=== PATIENT | female | born 1945 | race Caucasian/White ===

== ENCOUNTER → 2018-06-03 | Day surgery (SDC) | payer MEDICARE | LOC: MSO 06:57 | DX: R19.5 Other fecal abnormalities (principal); K57.30 Diverticulosis of large intestine without perforation or abscess without bleeding; I10 Essential (primary) hypertension; E11.9 Type 2 diabetes mellitus without complications; Z79.84 Long term (current) use of oral hypoglycemic drugs; Z79.899 Other long term (current) drug therapy; Z87.891 Personal history of nicotine dependence | CPT/HCPCS: 00812; J2704; J3010; J7030 ==

== ENCOUNTER → 2018-08-14 | Outpatient (CLI) | payer MEDICARE | LOC: MAMMO 11:30 | DX: Z12.31 Encounter for screening mammogram for malignant neoplasm of breast (principal) ==

== ENCOUNTER 2020-12-18 21:48 | Emergency (ER) | payer MEDICARE ==
[2020-12-18] MEDS ORDERED: ZOCOR20 M1 PO (21:54)
[2020-12-18] MEDS ORDERED: GLUCOPHAGE500 MG/TAB PO (21:54)
[2020-12-18] MEDS ORDERED: BYSTOLIC10 MG PO (21:54)
[2020-12-18] MEDS ORDERED: MICARDIS HCT 121 TA1 PO (21:55)
[2020-12-18 22:35] LABS: EOS # 0.5 (0.04-0.40); EOS % 5.7 % (1.0-5.0); HEMOGLOBIN 12.5 g/dL (12.5-16.0); LYMPH# 1.3 (1.50-4.00); MEAN CELL VOLUME 84 fl (78-100); MEAN CORPUSCULAR HEMOGLOBIN 26 pg (27-31); MEAN CORPUSCULAR HGB CONC 31 g/dL (33-37); NEU # 6.2 (1.40-6.50); PLATELET COUNT 250 K/mm3 (130-400); RED BLOOD COUNT 4.77 M/mm3 (4.10-5.30); RED CELL DISTRIBUTION WIDTH 14.6 % (11.5-14.5)
[2020-12-18 22:41] LABS: ALBUMIN 3.8 g/dL (3.4-4.8)
[2020-12-18 22:43] LABS: CALCIUM 9.3 mg/dL (8.3-10.5)
[2020-12-18 22:44] LABS: TOTAL PROTEIN 6.3 g/dL (6.2-8.1)
[2020-12-18 22:46] LABS: TOTAL BILIRUBIN 0.5 mg/dL (0.2-1.2)
[2020-12-19 00:09] VITALS: BP 146/95
[2020-12-19 06:05] LABS: URINE APPEARANCE CLEAR; URINE BILIRUBIN NEGATIVE (NEGATIVE); URINE BLOOD NEGATIVE (NEGATIVE); URINE COLOR STRAW; URINE GLUCOSE NEGATIVE (NEGATIVE); URINE KETONE NEGATIVE (NEGATIVE); URINE LEUKOCYTE ESTERASE NEGATIVE (NEGATIVE); URINE NITRATE NEGATIVE (NEGATIVE); URINE PROTEIN(semi-quant) NEGATIVE (NEGATIVE); URINE UROBILINOGEN NORMAL (NORMAL); URINE WBC 0-1 /hpf (0-3)
== END 2020-12-19 00:09 | disposition other institution (70) ==
LOC: ED 21:48
PROVIDERS: Family Medicine
DX: I11.0 Hypertensive heart disease with heart failure (principal); I50.9 Heart failure, unspecified; E11.9 Type 2 diabetes mellitus without complications; E78.5 Hyperlipidemia, unspecified; Z79.84 Long term (current) use of oral hypoglycemic drugs; Z79.899 Other long term (current) drug therapy
CPT/HCPCS: J1940

== ENCOUNTER 2020-12-19 00:09 | Inpatient (IN) | payer MEDICARE ==
[~2020-12-19 00:09] MED LIST: BYSTOLIC10 MG PO; GLUCOPHAGE500 MG/TAB PO; MICARDIS HCT 121 TA1 PO; ZOCOR20 M1 PO
[2020-12-19 02:17] VITALS: BP 146/84
[2020-12-19 06:14] VITALS: BP 120/70
[2020-12-19 09:05] LABS: POTASSIUM 3.8 mmol/L (3.5-5.1)
[2020-12-19 09:07] LABS: CALCIUM 9.5 mg/dL (8.3-10.5)
[2020-12-19 09:19] LABS: TROPONIN-I 0.03 ng/mL (<0.030)
[2020-12-19 09:41] VITALS: BP 124/83
[2020-12-19 14:13] VITALS: BP 114/67
[2020-12-19 16:22] VITALS: BP 137/76
[2020-12-19 22:32] VITALS: BP 155/92
[2020-12-20 02:01] VITALS: BP 127/64
[2020-12-20 05:44] VITALS: BP 139/97
[2020-12-20 09:33] VITALS: BP 109/74
[2020-12-20 13:58] LABS: EOS # 0.3 (0.04-0.40); EOS % 3.8 % (1.0-5.0); HEMATOCRIT 39.8 % (37.0-47.0); HEMOGLOBIN 12.5 g/dL (12.5-16.0); LYMPH# 1.3 (1.50-4.00); MEAN CELL VOLUME 83 fl (78-100); MEAN CORPUSCULAR HEMOGLOBIN 26 pg (27-31); MEAN CORPUSCULAR HGB CONC 31 g/dL (33-37); MEAN PLATELET VOLUME 9.7 fl (7.4-10.4); NEU # 5.5 (1.40-6.50); PLATELET COUNT 274 K/mm3 (130-400); RED BLOOD COUNT 4.78 M/mm3 (4.10-5.30); RED CELL DISTRIBUTION WIDTH 14.7 % (11.5-14.5); WHITE BLOOD COUNT 8.1 K/mm3 (4.8-10.8)
[2020-12-20 14:05] VITALS: BP 134/80
[2020-12-20 14:56] LABS: ALBUMIN 3.9 g/dL (3.4-4.8); POTASSIUM 4.2 mmol/L (3.5-5.1)
[2020-12-20 14:57] LABS: CALCIUM 8.8 mg/dL (8.3-10.5)
[2020-12-20 14:58] LABS: TOTAL PROTEIN 6.5 g/dL (6.2-8.1)
[2020-12-20 15:00] LABS: TOTAL BILIRUBIN 0.8 mg/dL (0.2-1.2)
[2020-12-20 15:36] LABS: TROPONIN-I 0.03 ng/mL (<0.030)
== END 2020-12-20 18:19 | disposition short-term general hospital (02) | DRG 292 ==
LOC: MED/SURG 00:09
PROVIDERS: Nurse Practitioner; ADMIT Family Medicine
DX: I11.0 Hypertensive heart disease with heart failure (principal); E87.1 Hypo-osmolality and hyponatremia; I50.9 Heart failure, unspecified; E11.9 Type 2 diabetes mellitus without complications; R09.02 Hypoxemia; Z20.822 Contact with and (suspected) exposure to COVID-19
CPT/HCPCS: J1650; J1940

== ENCOUNTER 2020-12-30 14:53 | Emergency (ER) | payer MEDICARE ==
[2020-12-30] MEDS ORDERED: FUROSEMIDE40 MG PO (15:20)
[2020-12-30] MEDS ORDERED: METOPROLOL SUCC50 M1 PO (15:20)
[2020-12-30] MEDS ORDERED: ALDACTONE 25MG25 MG PO (15:20)
[2020-12-30] MEDS ORDERED: ATORVASTATIN CA40 MG PO (15:20)
[2020-12-30] MEDS ORDERED: CLOPIDOGREL75 M2 PO (15:21)
[2020-12-30 15:43] LABS: BASO # 0.02 (0.02-0.10); EOS # 0.11 (0.04-0.40); EOS % 1.1 % (1.0-5.0); HEMOGLOBIN 12.5 g/dL (12.5-16.0); LYMPH# 0.85 (1.50-4.00); MEAN CELL VOLUME 79 fl (78-100); MEAN CORPUSCULAR HEMOGLOBIN 27 pg (27-31); MEAN CORPUSCULAR HGB CONC 35 g/dL (33-37); MEAN PLATELET VOLUME 11.2 fl (7.4-10.4); MONO # 0.99 (0.20-0.80); NEU # 8.44 (1.40-6.50); PLATELET COUNT 364 K/mm3 (130-400); RED BLOOD COUNT 4.57 M/mm3 (4.10-5.30); RED CELL DISTRIBUTION WIDTH 14.4 % (11.5-14.5); WHITE BLOOD COUNT 10.5 K/mm3 (4.8-10.8)
[2020-12-30 16:27] LABS: D-DIMER 0.64 mg/L FEU (0.15-0.50)
[2020-12-30 17:03] LABS: ALBUMIN 3.7 g/dL (3.4-4.8); POTASSIUM 4.8 mmol/L (3.5-5.1)
[2020-12-30 17:05] LABS: CALCIUM 9.3 mg/dL (8.3-10.5)
[2020-12-30 17:06] LABS: TOTAL PROTEIN 6.4 g/dL (6.2-8.1)
[2020-12-30 17:30] LABS: TROPONIN-I 4.34 ng/mL (<0.030)
[2020-12-30 19:01] VITALS: BP 121/75
[2020-12-30 20:02] LABS: D-DIMER 0.75 mg/L FEU (0.15-0.50)
[2020-12-30 20:28] LABS: URINE APPEARANCE HAZY; URINE COLOR YELLOW
[2020-12-30 20:29] LABS: URINE BILIRUBIN NEGATIVE (NEGATIVE); URINE BLOOD NEGATIVE (NEGATIVE); URINE GLUCOSE NEGATIVE (NEGATIVE); URINE KETONE 1+ (NEGATIVE); URINE LEUKOCYTE ESTERASE 1+ (NEGATIVE); URINE NITRATE NEGATIVE (NEGATIVE); URINE PROTEIN(semi-quant) TRACE mg/dL (NEGATIVE); URINE UROBILINOGEN NORMAL (NORMAL); URINE WBC 31-50 /hpf (0-3)
== END 2020-12-30 19:02 | disposition short-term general hospital (02) ==
LOC: ED 14:53
PROVIDERS: Internal Medicine; Nurse Practitioner
DX: I11.0 Hypertensive heart disease with heart failure (principal); I50.9 Heart failure, unspecified; I25.10 Atherosclerotic heart disease of native coronary artery without angina pectoris; E11.9 Type 2 diabetes mellitus without complications; Z95.9 Presence of cardiac and vascular implant and graft, unspecified; Z87.891 Personal history of nicotine dependence; Z79.899 Other long term (current) drug therapy; Z79.02 Long term (current) use of antithrombotics/antiplatelets
CPT/HCPCS: J1644; J1940

== ENCOUNTER 2021-05-07 18:06 | Emergency (ER) | payer MEDICARE ==
[~2021-05-07] VITALS: Ht 152.4 cm; Wt 101.9 kg
[~2021-05-07 18:06] MED LIST changes: +ALDACTONE 25MG25 MG PO; +ATORVASTATIN CA40 MG PO; +CLOPIDOGREL75 M2 PO; +FUROSEMIDE40 MG PO; +METOPROLOL SUCC50 M1 PO
[2021-05-07] MEDS ORDERED: DESYREL50 MG PO (19:12)
[2021-05-07] MEDS ORDERED: GLUCOPHAGE PO (19:13)
[2021-05-07] MEDS ORDERED: ENTRESTO 24 MG1 EACH PO (19:13)
[2021-05-07] MEDS ORDERED: K-TAB20 MEQ PO (19:14)
[2021-05-07] MEDS ORDERED: PACERONE200 MG PO (19:15)
[2021-05-07 20:28] LABS: BASO # 0.01 (0.02-0.10); HEMATOCRIT 34.6 % (37.0-47.0); HEMOGLOBIN 10.8 g/dL (12.5-16.0); MEAN CELL VOLUME 85 fl (78-100); MEAN CORPUSCULAR HEMOGLOBIN 27 pg (27-31); MEAN CORPUSCULAR HGB CONC 31 g/dL (33-37); MEAN PLATELET VOLUME 10.3 fl (7.4-10.4); MONO # 1.18 (0.20-0.80); NEU # 12.66 (1.40-6.50); PLATELET COUNT 239 K/mm3 (130-400); RED BLOOD COUNT 4.05 M/mm3 (4.10-5.30); RED CELL DISTRIBUTION WIDTH 18.5 % (11.5-14.5); WHITE BLOOD COUNT 14.5 K/mm3 (4.8-10.8)
[2021-05-07 20:34] LABS: POTASSIUM 4.4 mmol/L (3.5-5.1)
[2021-05-07 20:35] LABS: ALBUMIN 3.8 g/dL (3.4-4.8); CALCIUM 10.2 mg/dL (8.3-10.5)
[2021-05-07 20:37] LABS: TOTAL PROTEIN 7.2 g/dL (6.2-8.1)
[2021-05-07 20:38] LABS: TOTAL BILIRUBIN 1.5 mg/dL (0.2-1.2)
[2021-05-07 21:20] LABS: TROPONIN-I 0.04 ng/mL (<0.030)
[2021-05-07 21:55] LABS: URINE APPEARANCE CLEAR; URINE COLOR YELLOW
[2021-05-07 21:56] LABS: URINE BILIRUBIN NEGATIVE (NEGATIVE); URINE BLOOD NEGATIVE (NEGATIVE); URINE GLUCOSE NEGATIVE (NEGATIVE); URINE KETONE NEGATIVE (NEGATIVE); URINE LEUKOCYTE ESTERASE NEGATIVE (NEGATIVE); URINE MUCUS PRESENT (NOT PRESENT); URINE NITRATE NEGATIVE (NEGATIVE); URINE PROTEIN(semi-quant) TRACE mg/dL (NEGATIVE); URINE UROBILINOGEN NORMAL (NORMAL)
[2021-05-07 22:30] VITALS: BP 137/67
[2021-05-07] MEDS ORDERED: LASIX80 M1 PO (22:33)
[2021-05-07] MEDS ORDERED: ADULT LOW DOSE81 MG PO (22:36)
== END 2021-05-07 22:20 | disposition other institution (70) ==
LOC: ED 18:06
PROVIDERS: Family Medicine
DX: R22.41 Localized swelling, mass and lump, right lower limb (principal); E11.9 Type 2 diabetes mellitus without complications; I11.9 Hypertensive heart disease without heart failure; I50.9 Heart failure, unspecified; E87.1 Hypo-osmolality and hyponatremia; R60.0 Localized edema; Z20.822 Contact with and (suspected) exposure to COVID-19
CPT/HCPCS: J0696; J1940

== ENCOUNTER 2021-05-07 22:20 | Inpatient (IN) | payer MEDICARE ==
[~2021-05-07] VITALS: Ht 165.1 cm; Wt 95.5 kg
[~2021-05-07 22:20] MED LIST changes: +DESYREL50 MG PO; +ENTRESTO 24 MG1 EACH PO; +GLUCOPHAGE PO; +K-TAB20 MEQ PO; +PACERONE200 MG PO
--- NOTE | 2021-05-07 22:20 | NUR ---
Patient admitted from ER via wheel chair to room 204 and able to ambulate with CGA to recliner. Report received from Christine TAYLOR. Patient alert and oriented x 4. Has frequent non productive moist couph but denies shortness of breath at this time. "Just have a couph". [place]umhnip-wg-[id number] in room then left for the night. Patient oriented to call light and room. Snack of sandwich and sprite zero given. Takes HS med and tylenol for headache whole in applesauce. RLE area of redness and some small blisters seeping serous drainage/sock removed and RLL left open to air. BLE elevated and chris applied under legs.
[2021-05-07 22:30] VITALS: BP 137/67
[2021-05-07] MEDS ORDERED: LASIX80 M1 PO (22:33)
[2021-05-07] MEDS ORDERED: ADULT LOW DOSE81 MG PO (22:36)
--- NOTE | 2021-05-07 23:00 | NUR ---
Dr. Nava notified of yeasty red areas under panus and groin and nurse inquired about desenex powder. Areas cleansed with mild soap and water and patted dry-tender to touch.
--- NOTE | 2021-05-08 02:00 | NUR ---
Patient has been resting with eyes closed in recliner and BLE elevated.
--- NOTE | 2021-05-08 04:30 | NUR ---
Patient awakened for am vitals, weight, wraps to legs and henderson insertion all reviewed with patient. Patient states she slept well. Up to bathroom with walker and standby assist. Voids 500mls teo urine. Assisted with legs into bed. Has pitting edema 2-3+ up into thighs and abdomin. Area of blisters/reddened skin to right maxwell (11 cm by 11cm estimated) seeping serous drainage, cleansed with sterile water, patted dry, followed by stacked 4/4 guaze dressing, secured by kerlix. Same dressing to seeping small blister to left maxwell. BLL wrapped from foot to knee with ronel wrap.
--- NOTE | 2021-05-08 05:00 | NUR ---
Good javi-care provided and 16 macedonian henderson catheter inserted via sterile procedure with immediate return of clear yellow urine. Foot of bed elevated and BLE elevated on pillows. SCD's on.
[2021-05-08 05:49] VITALS: BP 110/65
--- NOTE | 2021-05-08 07:15 | NUR ---
Report received from Mary Hernandez RN. Paula Hernandez RN reported dressing change to right and left lower legs done by Mary Hernandez RN this morning before shift change. Dressings CDI, with SCD's on right and left lower legs.
--- NOTE | 2021-05-08 07:18 | NUR ---
Resting in bed, eyes closed.
[2021-05-08 09:06] LABS: POTASSIUM 3.9 mmol/L (3.5-5.1)
[2021-05-08 09:08] LABS: HEMATOCRIT 32.9 % (37.0-47.0); HEMOGLOBIN 10.1 g/dL (12.5-16.0); MEAN CELL VOLUME 86 fl (78-100); RED BLOOD COUNT 3.82 M/mm3 (4.10-5.30); WHITE BLOOD COUNT 10.5 K/mm3 (4.8-10.8)
[2021-05-08 09:09] LABS: MEAN CORPUSCULAR HEMOGLOBIN 26 pg (27-31); MEAN CORPUSCULAR HGB CONC 31 g/dL (33-37); MEAN PLATELET VOLUME 10.3 fl (7.4-10.4); PLATELET COUNT 222 K/mm3 (130-400)
[2021-05-08 09:10] LABS: LYMPH# 0.94 (1.50-4.00); MONO # 0.84 (0.20-0.80); NEU # 8.67 (1.40-6.50)
[2021-05-08 09:16] LABS: TROPONIN-I 0.04 ng/mL (<0.030)
[2021-05-08 10:00] VITALS: BP 117/63
--- NOTE | 2021-05-08 11:00 | NUR ---
Given incentive spirometer. Pt instructed on incentive spirometer, stated understanding. Used spirometer x 5, reach 500mls. Pt instructed nursing staff would be in Q hourly while she was awake to use spirometer. Pt stated understanding.
--- NOTE | 2021-05-08 11:31 | NUR ---
Dressing to right and left lower legs CDI. SCD's on lower legs.
--- NOTE | 2021-05-08 11:35 | NUR ---
Pt's personal laundry sent to house keeping. Accu-chek 168.
[2021-05-08 13:54] VITALS: BP 113/69
--- NOTE | 2021-05-08 14:22 | NUR ---
Pt received phone call from family member. Pt happy and laughing while talking. Continues to be on tele-monitor. Continues to become SOB with exersion.
--- NOTE | 2021-05-08 15:25 | NUR ---
Report given to Chelsey Carney RN
--- NOTE | 2021-05-08 17:13 | NUR ---
Dressing to bilateral lower legs ( 4 x 4 s with ronel wraps over top) remain d/I. Dr. Nava notifed. Pt henderson emptied 650 mls teo urine (total for this 12 hour shift) - noted to have stringy blood clot in henderson tubing. Pt has had about 720 mls oral intake this shift.
[2021-05-08 18:17] VITALS: BP 119/72
--- NOTE | 2021-05-08 19:00 | NUR ---
Report to SHAZIA Miranda.
--- NOTE | 2021-05-08 19:04 | NUR ---
Lungs with exp wheezes LLL and bilateral coarse crackles. Pt resp 24 and just sounds tight audibly. Dr. Nava aware of argueta sputum and wheezing. Albuterol treatment given and robitussin ac po given for continued cough. Pt states she has a headache and tylenol given per her request. SP02 98% on RA.
--- NOTE | 2021-05-08 19:20 | NUR ---
Lungs with exp wheezes throughout post nebulizer. Tele monitor continues RSR w/ 1 degree AV block with BBB rates 70's.
--- NOTE | 2021-05-08 20:00 | NUR ---
Report received from Tash TAYLOR. Patient up to BR with SBA and walker with [employer]. Passing gas but no BM. Coughing and SOB with exertion. Assisted to bed. Assessment completed. Lungs with exp wheezes all boyd and diminished in bases. Cough mainly dry at this time. Had nebulizer tx and cough med, Tylenol at shift change. H/A resolved. INT patent to R hand. Dressings to BLE CDI. Gaines patient to DD with dark teo urine in bag. SCD's applied.
--- NOTE | 2021-05-08 21:03 | NUR ---
Back up in recliner per requests. States sleeps in chair at home. Coughing and SOB with exertion. HS medications taken whole in applesauce at this time. Gaines cath emptied prior to PO lasix administered. 175 ML out since shift change. I.S. used and pulls 500 ML x10 cough present in between.
[2021-05-08 21:04] VITALS: BP 109/66
--- NOTE | 2021-05-09 00:58 | NUR ---
Awake, coughing, loose NPC. Robitussin and Tylenol taken at this time. No audible wheezing noted. Offered and refused neb tx.
--- NOTE | 2021-05-09 04:07 | NUR ---
Rang call light and asked to lay in bed. Daily wt obtained. Down 1.5 lbs from yesterday. Dressings on legs re-wrapped. Quarter sized yellow drainage to RLE and LLE 4x4 barely damp. Denies pain.
[2021-05-09 05:28] VITALS: BP 116/63
--- NOTE | 2021-05-09 07:08 | NUR ---
Report to Olivia Dasilva RN.
--- NOTE | 2021-05-09 07:12 | NUR ---
Report received from Ruth MCCRAY
[2021-05-09 07:44] LABS: POTASSIUM 4.1 mmol/L (3.5-5.1)
[2021-05-09 07:45] LABS: CALCIUM 9.5 mg/dL (8.3-10.5)
[2021-05-09 09:27] VITALS: BP 111/69
--- NOTE | 2021-05-09 13:00 | NUR ---
Report recieved by Amy Watters RN
[2021-05-09 13:26] VITALS: BP 121/52
[2021-05-09 17:04] VITALS: BP 120/67
--- NOTE | 2021-05-09 19:00 | NUR ---
Report received from Izzy TAYLOR.
--- NOTE | 2021-05-09 20:45 | NUR ---
HS meds along with rocephin reviewed and given. Sits up in recliner. Alert and oriented x 4. BLE with 1-2+ pitting edema. Has an occassional moist couph.
[2021-05-09 21:38] VITALS: BP 114/67
--- NOTE | 2021-05-09 22:30 | NUR ---
Requests tylenol to help her relax and given.
[2021-05-10 01:42] VITALS: BP 113/64
--- NOTE | 2021-05-10 02:48 | NUR ---
Patient sitting up in recliner working on puzzle book. Denies needs. States had some sleep.
--- NOTE | 2021-05-10 06:00 | NUR ---
Patient reports she did get some sleep tonight up in recliner.
[2021-05-10 06:24] VITALS: BP 132/74
--- NOTE | 2021-05-10 07:00 | NUR ---
REPORT RECEVIED FROM BRANDON WALLS. PT CURRENTLY UP IN CHAIR; OFFER NO NEEDS OR COMPLAINTS AT THIS TIME. CALL LIGHT WITHIN REACH, CHAIR ALARM ON.
[2021-05-10 10:00] VITALS: BP 110/67
--- NOTE | 2021-05-10 13:30 | NUR ---
BLE DRESSINGS CHANGED PER PROVIDER. PLAN TO DISCHARGE THIS EVENING. PATIENT VERBILIZED UNDERSTANDING. PATIENT RESTING IN BED WITH EYES OPEN, SCDS ON. PATIENT DENIES NEEDS OR COMPLAINTS AT THIS TIME. CALL LIGHT WITHIN REACH.
[2021-05-10] MEDS ORDERED: LOTRIMIN AF90 GM TP (14:15)
[2021-05-10 14:20] VITALS: BP 128/57
[2021-05-10] MEDS ORDERED: CEFDINIR300 MG PO (14:20)
[2021-05-10] MEDS ORDERED: RT ALBUTEROL CC18 GM IH (14:31)
[2021-05-10 17:19] VITALS: BP 116/69
--- NOTE | 2021-05-10 17:55 | NUR ---
PATIENT DISCHARGED HOME VIA WC IN CARE OF GRANDDAUGHTER. DISCHARGE INSTRUCTIONS REVIEWED, PATIENT VERBILIZED UNDERSTANDING. ALL PATIENT BELONGINGS SENT WITH PATIENT.
== END 2021-05-10 17:55 | disposition home or self-care (01) | DRG 292 ==
LOC: MED/SURG 22:20
PROVIDERS: ADMIT Family Medicine
DX: I11.0 Hypertensive heart disease with heart failure (principal); L03.115 Cellulitis of right lower limb; E87.1 Hypo-osmolality and hyponatremia; I50.810 Right heart failure, unspecified; I25.10 Atherosclerotic heart disease of native coronary artery without angina pectoris; B37.2 Candidiasis of skin and nail; R05 Cough; E11.9 Type 2 diabetes mellitus without complications; Z20.822 Contact with and (suspected) exposure to COVID-19; Z79.84 Long term (current) use of oral hypoglycemic drugs; Z79.82 Long term (current) use of aspirin; Z95.5 Presence of coronary angioplasty implant and graft; Z95.2 Presence of prosthetic heart valve
CPT/HCPCS: A4340; J0696; J1940

== ENCOUNTER → 2021-07-12 | Outpatient (CLI) | payer MEDICARE ==
[~2021-07-12] MED LIST changes: +ADULT LOW DOSE81 MG PO; +CEFDINIR300 MG PO; +LASIX80 M1 PO; +LOTRIMIN AF90 GM TP; +RT ALBUTEROL CC18 GM IH
[2021-07-12 14:26] LABS: POTASSIUM 3.9 mmol/L (3.5-5.1)
[2021-07-12 14:27] LABS: CALCIUM 9.8 mg/dL (8.3-10.5)
[2021-07-12 14:34] LABS: MAGNESIUM 1.41 mg/dL (1.60-2.60)
== END ==
LOC: LAB 13:58
PROVIDERS: Internal Medicine Cardiovascular Disease
DX: I50.9 Heart failure, unspecified (principal)

== ENCOUNTER 2024-10-18 12:38 | Emergency (ER) | payer MEDICARE ==
[~2024-10-18] VITALS: Ht 165.1 cm; Wt 81.6 kg
[~2024-10-18 12:38] MED LIST changes: +AUGMENTIN 500-1 EACH PO; +BENZONATATE100 M2 PO; +KLOR-CON 1010 MEQ PO; +MORGIDOX 1X100100 MG PO; +MYLANTA MAXIMU355 M1 PO; +SLOW FE142 MG PO; +TOPCARE PAIN R325 MG PO; +TORSEMIDE20 M1 PO
[2024-10-18 13:13] LABS: BASO # 0.01 K/mm3 (0.02-0.10); EOS # 0.01 K/mm3 (0.04-0.40); EOS % 0.1 % (1.0-5.0); HEMATOCRIT 38.5 % (37.0-47.0); HEMOGLOBIN 12.3 g/dL (12.5-16.0); LYMPH# 1.27 K/mm3 (1.50-4.00); MEAN CELL VOLUME 93 fl (78-100); MEAN CORPUSCULAR HEMOGLOBIN 30 pg (27-31); MEAN CORPUSCULAR HGB CONC 32 g/dL (33-37); MEAN PLATELET VOLUME 11.2 fl (7.4-10.4); MONO # 0.74 K/mm3 (0.20-0.80); NEU # 4.83 K/mm3 (1.40-6.50); PLATELET COUNT 168 K/mm3 (130-400); RED BLOOD COUNT 4.14 M/mm3 (4.10-5.30); RED CELL DISTRIBUTION WIDTH 13.3 % (11.5-14.5); WHITE BLOOD COUNT 6.9 K/mm3 (4.8-10.8)
[2024-10-18] MEDS ORDERED: ELIQUIS5 MG PO (13:23)
[2024-10-18] MEDS ORDERED: DOXYCYCLINE HY100 M5 PO (13:25)
[2024-10-18 13:27] LABS: CALCIUM 9.2 mg/dL (8.3-10.5)
[2024-10-18] MEDS ORDERED: Albuterol 0.083% Nebule (2.5 MG/3 ML) IH ONE (14:00)
[2024-10-18] MEDS ORDERED: methylPREDNISolone Sod Succ 125 MG/2 ML VIAL IM ONE (14:15)
[2024-10-18 14:49] VITALS: BP 163/81
== END 2024-10-18 14:43 ==
LOC: ED 12:38
PROVIDERS: Family Medicine
DX: J10.1 Influenza due to other identified influenza virus with other respiratory manifestations (principal); Z95.5 Presence of coronary angioplasty implant and graft
CPT/HCPCS: J2919